=== PATIENT | female | born 1950 | race Caucasian/White ===

== ENCOUNTER 2016-07-02 03:36 | Emergency (ER) | payer MEDICARE, BC ==
[2016-07-02 04:00] VITALS: RESP 18; TEMP 97
[2016-07-02] MEDS ORDERED: AMOXICILLIN 125/5 ML BOTTLE PO ONE (04:05)
[2016-07-02] MEDS ORDERED: AMOXICILLIN 125/5 ML BOTTLE ONE (04:07)
[2016-07-02 04:21] VITALS: BP 143/86; PULSE 80; O2SAT 96
== END 2016-07-02 04:27 | disposition home or self-care (01) | DRG 153 ==
LOC: ED 03:36
DX: J06.9 Acute upper respiratory infection, unspecified (principal)
CPT/HCPCS: 99282

== ENCOUNTER 2018-07-13 15:24 | Emergency (ER) | payer MEDICARE, BC ==
[2018-07-13 15:48] LABS: APPEARANCE,URINE Clear; BILIRUBIN,URINE NEGATIVE (NEGATIVE); COLOR,URINE Yellow; GLUCOSE, URINE (UA) NEGATIVE (NEGATIVE); KETONES,URINE 2+ (NEGATIVE); LEUKOCYTE ESTERASE ,URINE NEGATIVE (NEGATIVE); NITRATE,URINE NEGATIVE (NEGATIVE); OCCULT BLOOD,URINE NEGATIVE (NEG-TRACE); UROBILINOGEN,URINE 0.2 (0.2-1.0 EU)
[2018-07-13 15:57] LABS: BACTERIA TRACE (< 1+); CRYSTALS NEGATIVE (0-3 AVE/HPF); EPITHELIAL CELLS 0-2 (SQUAMOUS); RBC,URINE 0-2 (0-3AV/HPF); WBC,URINE 0-1 (0-5AV/HPF)
[2018-07-13 16:19] VITALS: TEMP 96.5
[2018-07-13] MEDS ORDERED: KETOROLAC TROMETHAMINE 30 MG/ML SOL ONE (16:28)
[2018-07-13] MEDS ORDERED: KETOROLAC TROMETHAMINE 30 MG/ML SOL IV ONE (16:29)
[2018-07-13] MEDS ORDERED: SODIUM CHLORIDE 0.9% 1000ML 1,000 ML IV ONE (16:30)
[2018-07-13] MEDS ORDERED: ONDANSETRON HCL 4 MG/2 ML SOL IV ONE (16:30)
[2018-07-13 16:38] LABS: BASOPHILS % (AUTO) 1 % (0-3); EOSINOPHILS % (AUTO) 1 % (0-9); HEMATOCRIT 45 % (35-47); HEMOGLOBIN 15.5 gm/dl (12.0-15.5); LYMPHOCYTES % (AUTO) 17.2 % (10-50); MEAN CORPUSCULAR HEMOGLOBIN 29.5 pg (27.0-32.0); MEAN CORPUSCULAR HGB CONC 34.2 gm/dl (32.0-36.0); MEAN CORPUSCULAR VOLUME 86 fL (81-99); MONOCYTES % (AUTO) 4.9 % (0-12); NEUTROPHILS % (AUTO) 76.7 % (37-80)
[2018-07-13 16:54] LABS: ALBUMIN 3.8 gm/dl (3.4-5.0); BILIRUBIN,TOTAL 0.6 mg/dl (0.2-1.0); CALCIUM 8.6 mg/dl (8.5-10.1); CARBON DIOXIDE 24.9 mEq/L (21-32); CREATININE 0.77 mg/dl (0.60-1.00); POTASSIUM 3.4 mMol/L (3.5-5.1); TOTAL PROTEIN 7.5 gm/dl (6.4-8.2)
[2018-07-13] MEDS: SODIUM CHLORIDE 0.9% FLUSH 10 ML SOL IV PRN ×2 (16:55→18:31)
[2018-07-13] MEDS ORDERED: FENTANYL 100MCG/2ML SOL ONE (17:40)
[2018-07-13] MEDS ORDERED: FENTANYL 100MCG/2ML SOL IV ONE (17:52)
[2018-07-13] MEDS ORDERED: CYCLOBENZAPRINE 10 MG TAB PO ONE (18:11)
[2018-07-13] MEDS ORDERED: CYCLOBENZAPRINE 10 MG TAB ONE (18:26)
[2018-07-13] MEDS ORDERED: ONDANSETRON HCL 4 MG/2 ML SOL ONE (18:26)
[2018-07-13 19:00] VITALS: BP 149/75; PULSE 58; RESP 16; O2SAT 97
== END 2018-07-13 19:01 | disposition home or self-care (01) | DRG 103 ==
LOC: ED 15:24
DX: G44.209 Tension-type headache, unspecified, not intractable (principal); M54.5 Low back pain
CPT/HCPCS: 72120; 74019; 80053; 81001; 85025; 96365; 96374; 96375; 99283; 99285; J1885; J2405; J3010; A9270-GY